=== PATIENT | female | born 1995 | race Caucasian/White ===

== ENCOUNTER 2020-04-09 21:53 | Emergency (ER) | payer OTHER ==
[~2020-04-09] VITALS: Ht 167.6 cm; Wt 113.0 kg
[2020-04-09] MEDS ORDERED: ONDANSETRON HCL 4MG/2ML INJ IV STA (23:34)
[2020-04-09] MEDS ORDERED: SODIUM CHLORIDE 0.9% 1,000 ML IV ONE (23:34)
[2020-04-09] MEDS ORDERED: MORPHINE SULFATE 4 MG/ML CPJ (NOT FOR IM USE) IV STA (23:34)
[2020-04-10 00:01] LABS: BASOPHILS % 1.2 % (0.0-2.0); EOSINOPHILS % 0.2 % (0.0-5.0); HEMATOCRIT. 29.4 % (36.0-48.0); HEMOGLOBIN. 9.3 g/dL (12.0-16.0); LYMPHOCYTES % 10.2 % (20.0-50.0); MEAN CORPUSCULAR HEMOGLOBIN 22.7 pg (28.0-32.0); MEAN CORPUSCULAR VOLUME 72.1 fL (81.0-99.0); MEAN PLATELET VOLUME 7.9 fl (7.4-10.4); MONOCYTES % 5.2 % (2.0-8.0); NEUTROPHILS % 83.2 % (40.0-76.0); PLATELET 746 x1000/uL (130-400); RED BLOOD CELL COUNT 4.07 mill/uL (4.2-5.4); RED CELL DISTRIBUTION WIDTH 19.2 % (11.6-14.6)
[2020-04-10 00:05] LABS: CHLORIDE 110 mEq/L (98-107)
[2020-04-10 00:09] LABS: ETHANOL BLOOD < 10 mg/dL
[2020-04-10 00:25] LABS: HCG SCREEN NEGATIVE
[2020-04-10 01:43] LABS: CLARITY URINE CLOUDY (CLEAR); COLOR URINE DARK YELLOW (YELLOW); KETONES URINE TRACE (NEGATIVE); LEUKOCYTE ESTERASE URINE 2+ (NEGATIVE); NITRITE URINE NEGATIVE (NEGATIVE); OCCULT BLOOD URINE 3+ (NEGATIVE); PROTEIN URINE 1+ (NEGATIVE); SPECIFIC GRAVITY URINE 1.024 (1.005-1.030)
[2020-04-10 02:20] LABS: *BENZODIAZEPINES SCREEN URINE NEGATIVE (NEGATIVE); *COCAINE SCREEN URINE NEGATIVE (NEGATIVE); METHADONE URINE SCREEN NEGATIVE (NEGATIVE); OPIATES URINE SCREEN NEGATIVE (NEGATIVE); PHENCYCLIDINE URINE SCREEN NEGATIVE (NEGATIVE)
[2020-04-10 02:21] LABS: *AMPHETAMINES SCREEN URINE NEGATIVE (NEGATIVE); *BARBITURATES SCREEN URINE NEGATIVE (NEGATIVE); CANNABINOID URINE SCREEN NEGATIVE (NEGATIVE)
[2020-04-10] MEDS ORDERED: ONDANSETRON HCL 4MG/2ML INJ IV ONE (02:30)
[2020-04-10 03:50] LABS: PROTHROMBIN TIME 10.7 sec (9.6-11.0)
[2020-04-10 05:47] VITALS: BP 120/75
== END 2020-04-10 05:49 | disposition home or self-care (01) ==
LOC: ER 21:53
DX: K29.70 Gastritis, unspecified, without bleeding (principal); F17.210 Nicotine dependence, cigarettes, uncomplicated; Z71.6 Tobacco abuse counseling; Z98.890 Other specified postprocedural states
CPT/HCPCS: 36415; 76705; 80053; 80305; 80320; 81003; 83605; 83690; 84703; 85025; 85610; 86850; 86900; 86901; 93005; 96374; 96376; 99285; 99406; J2270; J2405; J7030; G0480

== ENCOUNTER 2024-01-18 11:42 | Emergency (ER) | payer MEDICAID ==
[~2024-01-18] VITALS: Ht 167.6 cm; Wt 145.0 kg
[2024-01-18 11:55] VITALS: BP 130/81; PULSE 93; RESP 18; TEMP 98.2; O2SAT 98
[2024-01-18] MEDS ORDERED: GUAI-740 MT (15:34)
[2024-01-18] MEDS: ACETAMINOPHEN 325MG TABLET PO ONE (16:34)
== END 2024-01-18 16:35 | disposition home or self-care (01) ==
LOC: ER 11:42
DX: B34.9 Viral infection, unspecified (principal); E11.9 Type 2 diabetes mellitus without complications; E78.00 Pure hypercholesterolemia, unspecified; Z20.822 Contact with and (suspected) exposure to COVID-19; Z98.890 Other specified postprocedural states
CPT/HCPCS: 87426; 87804; 99283